=== PATIENT | female | born 1945 | race African-American/Black ===

== ENCOUNTER → 2019-07-15 | Day surgery (SDC) | payer OTHER | LOC: JASU-SURG 10:09 ==

== ENCOUNTER 2019-07-22 05:17 | Day surgery (SDC) | payer OTHER ==
[2019-07-20 16:20] VITALS: BMI 27.4
[~2019-07-22 05:17] MED LIST: ACETAMINOPHEN 325 MG TABLET (FP) PO PRN; OFLOXACIN 0.3% OPHTHALMIC SOLUTION 5 ML BOTTLE OP SCH
[2019-07-22] MEDS ORDERED: OFLOXACIN 0.3% OPHTHALMIC SOLUTION 5 ML BOTTLE OS ONE ×3 (12:20→12:30)
[2019-07-22] MEDS ORDERED: LIDOCAINE HCL/PF 2% SDV 5ML VIAL INF ONE (13:28)
[2019-07-22] MEDS ORDERED: BUPIVACAINE HCL/PF 0.75% 10 ML VIAL NR ONE (13:28)
[2019-07-22] MEDS ORDERED: POVIDONE-IODINE 5% OPHTHALMIC PREP 30 ML SOLUTION OS ONE (13:30)
[2019-07-22] MEDS ORDERED: BSS (NA/CA/MG/K) BALANCED SALT SOLUTION OPHTH SOLN 15 ML BOTTLE OS ONE (13:38)
[2019-07-22] MEDS ORDERED: LIDOCAINE HCL 1% PRESERVATIVE FREE - 30ML VIAL IO ONE (13:38)
[2019-07-22] MEDS ORDERED: CYCLOPENTOLATE HCL 1% OPHTH SOLN 2 ML BOTTLE OS ONE (13:46)
[2019-07-22] MEDS ORDERED: TROPICAMIDE 1% OPHTH SOLN 15 ML BOTTLE OS ONE (13:46)
[2019-07-22] MEDS ORDERED: PHENYLEPHRINE 2.5% OPHTH SOLN 15 ML BOTTLE OS ONE (13:46)
[2019-07-22 16:24] VITALS: BP 139/87; PULSE 80; TEMP 97.6
--- NOTE | 2019-07-22 23:53 | OP ---
DATE OF OPERATION: 07/22/2019 PREOPERATIVE DIAGNOSIS: Mechanical complication of corneal graft, left eye. POSTOPERATIVE DIAGNOSIS: Mechanical complication of corneal graft, left eye. PROCEDURE: Repositioning and re-bubbling of corneal endothelial graft, left eye. ANESTHESIA: Peribulbar/modified Van Lint/MAC. COMPLICATIONS: None. DESCRIPTION OF PROCEDURE: The patient was brought to the operating room and correctly identified along with the operative site. She was then given a peribulbar block under sedation with 5 mL of a 1:1 mixture of 2% lidocaine and 0.75% bupivacaine. One milliliter the samle mixture was given as a modified Van Lint eyelid block. The eye was then prepped and draped in the usual sterile fashion including 5% Betadine solution in the conjunctival sac and an eyelid drape. The eyelid speculum was then placed into the left eye. The graft was noted to be well centered, but easily movable with external pressure. A microsharp was used to reopen the corneal venting incisions made during the primary surgery, and 2 additional venting incisions were also made just in the midperipheral cornea. A paracentesis port was made superotemporally. BSS was injected into the anterior chamber to inflate the anterior chamber. Once again, the graft was noted to be moving. A small corporate pilot bubble was then placed beneath the graft to push it up. The graft was then manipulated externally until it was centered. A 100% air fill was then achieved in the anterior chamber by injecting air intracamerally with a 30-gauge needle. The graft was noted to be elevated and up against the cornea as well as well-centered. A tian sweeper was then used to remove any interface fluid by massaging the cornea from the apex to the periphery. This was done multiple times. The corneal venting incisions were opened as well using the Micro-Sharp blade to see if there was any interface fluid noted. None was noted through any of the 4 venting incisions. The eye was then allowed to remain with a 100% air fill for 20 minutes. Topical tropicamide 1%, phenylephrine 2.5% , and cyclopentolate 1% were then given q.3 minutes for a total of 5 doses. After a total of 20 minutes, the air was removed through one of the paracentesis ports and replaced with BSS. An approximately 70% air fill was still noted. The graft seemed to be attached and not moving. Topical vancomycin was then placed, the eye patched and shielded and the patient discharged from the operating room with instructions to remain lying on her back for the next 2 hours and as well as much as possible at home. KAILEE BERGMAN M.D. [id number] MTDD
== END 2019-07-22 17:05 | disposition home or self-care (01) ==
LOC: JASU-SURG 05:17
PROVIDERS: ATTEND Ophthalmology
PROC: 08Q9XZZ Repair Left Cornea, External Approach (ICD-10-PCS; principal; 2019-07-22 13:00)
DX: T85.398A Other mechanical complication of other ocular prosthetic devices, implants and grafts, initial encounter (principal); T85.328A Displacement of other ocular prosthetic devices, implants and grafts, initial encounter; Y77.8 Miscellaneous ophthalmic devices associated with adverse incidents, not elsewhere classified; Y92.9 Unspecified place or not applicable; Y83.2 Surgical operation with anastomosis, bypass or graft as the cause of abnormal reaction of the patient, or of later complication, without mention of misadventure at the time of the procedure
CPT/HCPCS: 94760